=== PATIENT | male | born 1975 | race Caucasian/White ===

== ENCOUNTER 2023-04-01 01:34 | Inpatient (IN) | payer MEDICAID, SELFPAY ==
[2023-04-01 01:38] VITALS: BMI 28.1
[2023-04-01 01:40] VITALS: BP 156/90; PULSE 98; RESP 16; TEMP 37.1; O2SAT 95
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
[2023-04-01 02:02] LABS: Basophils % 0.5 %; Eosinophils # 0.2 10^3/uL (0.0-0.8); Eosinophils % 2.5 %; Hematocrit 44.7 % (42.0-52.0); Hemoglobin 14.8 g/dL (11.7-16.6); Lymphocytes # 2.9 10^3/uL (0.8-4.8); Lymphocytes % 33.8 %; Mean Corpuscular HGB Conc 33.1 g/dL (30.0-36.0); Mean Corpuscular Hemoglobin 30.8 pg (28.0-34.0); Mean Corpuscular Volume 92.9 fl (80-94); Mean Platelet Volume 9.2 fL (7.4-10.4); Monocytes # 0.6 10^3/uL (0.2-0.9); Monocytes % 6.6 %; Neutrophils # 4.78 10^3/uL (1.8-7.7); Neutrophils % 56.4 %; Nucleated Red Blood Cells % 0 %; Platelet Count 298 10^3/cmm (130-400); Red Blood Count 4.81 10^6/uL (4.1-5.3); Red Cell Distribution Width 13.2 % (12.1-15.1); White Blood Count 8.5 10^3/uL (4.0-10.0)
--- NOTE | 2023-04-01 02:08 | ECG_ITS ---
[facility] Test Date: 2023-04-01 Pat Name: Cherri Willis Department: Room: Gender: Male [employer] Analyst: : 1975 Requested By: Acacia Murphy Order Number: [id number] Elva MD: Juan Daniel Costello M.D. Measurements Intervals [place] Rate: 83 P: 57 MD: 162 QRS: -25 QRSD: 123 T: 30 QT: 361 QTc: 426 Interpretive Statements SINUS RHYTHM BORDERLINE LEFT AXIS DEVIATION [QRS AXIS < -20] RIGHT BUNDLE BRANCH BLOCK [120+ ms QRS DURATION, UPRIGHT V1, 40+ ms S IN I/aVL/V4/V5/V6] No previous ECG available for comparison Electronically Signed On 04-01-2023 13:20:24 CDT by Juan Daniel Costello M.D. [email or web address]
--- NOTE | 2023-04-01 02:12 | PC.NURSE ---
Pt served with Copy of 96 Hour Holds rights by this RN and security. All questions answered.
[2023-04-01 02:22] LABS: Alanine Aminotransferase 85 U/L (0-41); Albumin Level 4.7 g/dL (3.5-5.2); Alkaline Phosphatase 109 U/L (40-130); Anion Gap 16.9 (5-19); Aspartate Amino Transferase 87 U/L (0-40); Blood Urea Nitrogen 6 mg/dL (6-20); Calcium 8.9 mg/dL (8.5-10.5); Carbon Dioxide 27 mmol/L (22-29); Chloride 102 mmol/L (98-107); Globulin 3.8 g/dL (1.3-4.6); Glomerular Filtration Rate 143.2 mL/min (90-130); Glucose 115 mg/dL (65-115); Osmolality Calculated 293 mOsm/kg (285-295); Potassium 3.9 mmol/L (3.5-5.1); Sodium 142 mmol/L (136-145); Total Bilirubin 0.4 mg/dL (0.15-1.2); Total Protein 8.5 g/dL (6.6-8.7)
[2023-04-01 02:26] LABS: Acetaminophen < 5.0 ug/mL (10-30); Salicylate < 0.3 mg/dL (3-10)
[2023-04-01 02:27] LABS: Alcohol Level 328 mg/dL (0-10)
[2023-04-01 02:35] VITALS: BP 128/78; PULSE 85; RESP 14
--- NOTE | 2023-04-01 02:43 | PC.NURSE ---
-@ patients request- called daughter Conrad [phone] to let her know that he was in the ER and that he was doing ok. Told her that he is stable and safe. He will will be able to contact her tomorrow.
[2023-04-01 06:02] LABS: Amphetamines Screen Urine Negative (Negative); Barbiturates Screen Urine Negative (Negative); Benzodiazepines Screen Urine Negative (Negative); Cocaine Screen Urine Negative (Negative); Opiate Screen Urine Negative (Negative); PCP Screen Urine Negative (Negative); THC Screen Urine Positive (Negative)
[2023-04-01 06:07] VITALS: BP 123/68; PULSE 82; RESP 14; O2SAT 98
[2023-04-01 06:59] LABS: Adenovirus Not Detected (NOT DETECT); Chlamydia Pneumoniae Not Detected (NOT DETECT); Coronavirus 229E,HKU1,NL63,OC4 Not Detected (NOT DETECT); Human Metapneumovirus Not Detected (NOT DETECT); Human Rhinovirus/Enterovirus Not Detected (NOT DETECT); Influenza A Not Detected (NOT DETECT); Influenza A H1 Not Detected (NOT DETECT); Influenza A H1-2009 Not Detected (NOT DETECT); Influenza A H3 Not Detected (NOT DETECT); Influenza B Not Detected (NOT DETECT); Mycoplasma Pneumoniae Not Detected (NOT DETECT); Parainfluenza Virus Type 1 Not Detected (NOT DETECT); Parainfluenza Virus Type 2 Not Detected (NOT DETECT); Parainfluenza Virus Type 3 Not Detected (NOT DETECT); Parainfluenza Virus Type 4 Not Detected (NOT DETECT); Respiratory Syncytial Virus A Not Detected (NOT DETECT); Respiratory Syncytial Virus B Not Detected (NOT DETECT); SARS-COV-2 Not Detected (NOT DETECT)
[2023-04-01] MEDS: thiamine 100 mg Tablet PO (08:53)
[2023-04-01] MEDS: folic acid 1 mg Tablet PO (08:53)
[2023-04-01] MEDS: nicotine 21 mg Patch 1 PATCH TRANSDERMA (08:53)
[2023-04-01] MEDS: multivitamin therapeutic Tablet 1 TAB PO (08:53)
[2023-04-01 14:00] VITALS: BP 156/82; PULSE 77; RESP 16; TEMP 36.6; O2SAT 98
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
[2023-04-01] MEDS: nicotine 2 mg Gum BUCCAL (15:54)
--- NOTE | 2023-04-01 15:54 | PC.NURSE ---
WHEN PT ARRIVED ON FLOORPT NO LONGER HAD NICOTINE PATCH. DUE TO NO BEING ABLE TO KNOW WHAT TIME IT CAME OFF THIS RN HAD PT WAIT THE ALLUDED 2 HOURS IN BETWEEN NICOTINE PRNS.
[2023-04-01] MEDS: acetaminophen 325 mg Tablet 650 MG PO (17:06)
[2023-04-01 21:21] VITALS: BP 156/82; PULSE 101; RESP 16; TEMP 36.5; O2SAT 97
[2023-04-02 06:00] VITALS: BP 142/83; PULSE 87; RESP 18; O2SAT 97
[2023-04-02] MEDS: ibuprofen 600 mg Tablet PO (08:25)
[2023-04-02] MEDS: folic acid 1 mg Tablet PO (08:25)
[2023-04-02] MEDS: multivitamin therapeutic Tablet 1 TAB PO (08:26)
[2023-04-02] MEDS: thiamine 100 mg Tablet PO (08:26)
[2023-04-02] MEDS: nicotine 2 mg Gum BUCCAL ×3 (09:36→18:32)
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
[2023-04-02 14:00] VITALS: BP 151/86; PULSE 67; RESP 16; TEMP 36.6; O2SAT 98
[2023-04-02] MEDS: acetaminophen 325 mg Tablet 650 MG PO ×2 (14:17→18:32)
[2023-04-02 21:46] VITALS: BP 150/84; PULSE 79; RESP 17; TEMP 36.7; O2SAT 97
[2023-04-03 06:00] VITALS: BP 146/95; PULSE 77; RESP 17; O2SAT 98
[2023-04-03] MEDS: thiamine 100 mg Tablet PO (09:08)
[2023-04-03] MEDS: folic acid 1 mg Tablet PO (09:08)
[2023-04-03] MEDS: multivitamin therapeutic Tablet 1 TAB PO (09:08)
[2023-04-03] MEDS: nicotine 2 mg Gum BUCCAL ×5 (10:08→20:43)
[2023-04-03] MEDS: propranolol 20 mg Tablet PO (12:56)
[2023-04-03 14:00] VITALS: BP 148/85; PULSE 64; RESP 16; TEMP 36.7; O2SAT 98
--- NOTE | 2023-04-03 20:30 | W.PM.NPUPNS ---
Subjective NPU Subjective: Patient presents today reporting that he is open to rehab and shelters as well as long as his girlfriend can go. He was set up for [facility] on Thursday. We started propranolol 20 mg prn for anxiety after a discussion of the risks, benefit and alternatives he understood and agreed to proceed like is documented in this note and he reported he was through his withdrawal. We discussed the possibility of discharge tomorrow morning. Mental Status Exam MSE Comments: This is a well-nourished, well-developed, white male, in hospital scrubs, with adequate grooming and eye contact. With a notable cyst, appearing as likely sebaceous cyst, or middle/left forehead. No abnormal movements. Cooperative with exam in mild distress. Speech was normal rate and volume. Mood described as good; affect congruent. Thought process, organized. Thought content: patient denied any suicidal or homicidal ideation, there were no delusions reported or noted, patient denied any auditory or visual hallucinations. Attention, concentration, and memory appeared intact, but none were formally tested. Alert and oriented times three. Insight and judgment are limited. Impulse control is fair. Vitals/I&O/Wt Last Vital Signs Temp 98.1 F 04/03/23 14:00 Pulse 64 04/03/23 14:00 Resp 16 04/03/23 14:00 BP 148/85 04/03/23 14:00 Pulse Ox 98 04/03/23 14:00 O2 Del Method Room Air 04/03/23 14:00 Data NPU 04/01/23 01:51 04/01/23 01:51 A&P Assessment and plan (1) Suicidal ideation: (2) Alcohol intoxication: (3) Major depressive disorder, recurrent, moderate: (4) Alcohol use disorder: Plan This is a 47-year-old, white male, with some genetic loading for mental health and addiction issues, who presents on a 96-hour hold after having a blood alcohol level of 358, leading to an argument with his girlfriend and ultimately an altercation with the police, who is open to treatment and possibly medication for depression. 1. Continue current medication. Start propranolol 20 mg po tid prn anxiety. 2. Encourage individual, group, and milieu therapy. 3. Continue q-15-minute checks for safety. 4. Recommend sober living treatment at the highest level of care to which the patient is willing to commit. Involuntary Hold Information 96 Hour Hold: 96 Hour Involuntary Admission: Yes 96 Hour Hold Ending Date: 04/07/23 96 Hour Hold Ending Time: 01:34 Attestations NPU Medical Necessity Statement*: Inpatient hospitalization is medically necessary and the clinically appropriate intervention, at this time. We will monitor medications and make changes as indicated. Likely length of stay is 1-3 days. Coding Level of Care Code Acute Code for [facility] Fwd Diagnoses Suicidal ideation R45.851 Alcohol intoxication F10.929 Major depressive disorder, recurrent, moderate F33.1 Alcohol use disorder F10.90
[2023-04-03 21:08] VITALS: BP 127/77; PULSE 67; RESP 17; TEMP 36.7; O2SAT 97
[2023-04-04 06:00] VITALS: BP 133/80; PULSE 69; RESP 17; TEMP 36.4; O2SAT 98
[2023-04-04] MEDS: thiamine 100 mg Tablet PO (09:25)
[2023-04-04] MEDS: multivitamin therapeutic Tablet 1 TAB PO (09:25)
[2023-04-04] MEDS: folic acid 1 mg Tablet PO (09:25)
[2023-04-04] MEDS: nicotine 2 mg Gum BUCCAL (10:04)
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
[2023-04-04 11:01] VITALS: BP 133/80; PULSE 69; RESP 17; TEMP 36.4; O2SAT 98
--- NOTE | 2023-04-04 12:02 | PC.NURSE ---
written discharge instruction discussed and left with patient. pt states understanding and compliance. pt belonging given to patient and pt signed all personal belonging are now in his possession. pt left via car tender to go to [facility] then to his home.
== END 2023-04-04 12:05 | disposition home or self-care (01) | DRG 897 ==
LOC: ER 02:24 → ER IP 04:54 → NP 13:04
PROVIDERS: Admitting Provider Psychiatry & Neurology Psychiatry; Emergency Provider Emergency Medicine; Visit Provider Psychiatry & Neurology Psychiatry
DX: F10.129 Alcohol abuse with intoxication, unspecified (principal); R45.851 Suicidal ideations; F33.1 Major depressive disorder, recurrent, moderate; F10.139 Alcohol abuse with withdrawal, unspecified; Y90.8 Blood alcohol level of 240 mg/100 ml or more; F17.220 Nicotine dependence, chewing tobacco, uncomplicated; B19.20 Unspecified viral hepatitis C without hepatic coma; E87.6 Hypokalemia; Z81.3 Family history of other psychoactive substance abuse and dependence; Z91.51 Personal history of suicidal behavior
CPT/HCPCS: 80053; 80306; 80307; 85025; 87635; 93005; 96372; 97165; 99238; 99285; J3411

== ENCOUNTER 2024-01-29 21:48 | Inpatient (IN) | payer MEDICAID, SELFPAY ==
[2024-01-29 21:49] VITALS: BP 122/64; PULSE 63; RESP 12; TEMP 36.6; O2SAT 96; BMI 27.4
--- NOTE | 2024-01-29 21:54 | PC.NURSE ---
Poison controlled contacted for pt taking 58tabs of 50mg Trazodone. Per poison control watch the pt's QT intervals on ekg. Monitor pt's Potassium and Magnesium. Pharmacist Tamara was who was spoken with.
--- NOTE | 2024-01-29 21:55 | XRR_ITS ---
PROCEDURE INFORMATION: Exam: XR Chest Exam date and time: 01/29/2024 10:08 PM Age: 48 years old Clinical indication: Other: Overdose TECHNIQUE: Imaging protocol: Radiologic exam of the chest. Views: 1 view. COMPARISON: No relevant prior studies available. FINDINGS: Lungs: Clear, symmetrically inflated lungs. Pleural spaces: No pleural effusion. No pneumothorax. Heart/Mediastinum: Cardiac silhouette is normal in size for technique. Bones/joints: Postsurgical change noted in the right shoulder. XR/XR chest 1V portable [id number] IMPRESSION: No acute cardiopulmonary abnormality.
--- NOTE | 2024-01-29 21:56 | ECG_ITS ---
[facility] Test Date: 2024-01-29 Pat Name: Cherri Willis Department: Room: Gender: Male Manager Paid: : 1975 Requested By: Mik Santos Order Number: [id number] Stevenson MD: Juan Daniel Costello M.D. Measurements Intervals [place] Rate: 58 P: 85 [place]: 170 QRS: -29 QRSD: 133 T: 77 QT: 456 QTc: 452 Interpretive Statements SINUS BRADYCARDIA INDETERMINATE AXIS RIGHT BUNDLE BRANCH BLOCK [120+ ms QRS DURATION, UPRIGHT V1, 40+ ms S IN I/aVL/V4/V5/V6] Compared to ECG 04/01/2023 02:08:02 Indeterminate axis now present Sinus rhythm no longer present Electronically Signed On 01-29-2024 23:10:36 CDT by Juan Daniel Costello M.D. [id number]
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
[2024-01-29 22:04] LABS: Basophils # 0.1 10^3/uL (0.0-0.1); Basophils % 0.8 %; Eosinophils # 0.1 10^3/uL (0.0-0.8); Eosinophils % 1.3 %; Lymphocytes # 2.8 10^3/uL (0.8-4.8); Lymphocytes % 34.6 %; Mean Corpuscular HGB Conc 32.7 g/dL (30-55); Mean Corpuscular Volume 94.8 fl (82-101); Mean Platelet Volume 10.1 fL (7.4-10.4); Monocytes # 0.6 10^3/uL (0.2-0.9); Monocytes % 7.4 %; Neutrophils # 4.44 10^3/uL (1.8-7.7); Neutrophils % 55.4 %; Nucleated Red Blood Cells % 0 %; Platelet Count 234 10^3/cmm (157-399); Red Blood Count 4.64 10^6/uL (3.85-5.65); Red Cell Distribution Width 12.7 % (12.1-15.1)
[2024-01-29 22:09] VITALS: BP 122/64; PULSE 62; RESP 12; O2SAT 97
[2024-01-29] MEDS: sodium chloride 0.9% 1,000 ML 999 ML IV (22:09)
[2024-01-29 22:16] LABS: Acetaminophen < 5.0 ug/mL (10-30); Alanine Aminotransferase 74 U/L (0-41); Albumin Level 4.1 g/dL (3.5-5.2); Alcohol Level 200 mg/dL (0-10); Alkaline Phosphatase 107 U/L (40-130); Anion Gap 15.9 (5-19); Aspartate Amino Transferase 50 U/L (0-40); Blood Urea Nitrogen 11 mg/dL (6-20); Calcium 8.4 mg/dL (8.5-10.5); Carbon Dioxide 23 mmol/L (22-29); Chloride 106 mmol/L (98-107); Creatinine Clr Calc Pharmacy 123.4364; Globulin 2.9 g/dL (1.3-4.6); Glomerular Filtration Rate 119.4 mL/min (90-130); Glucose 115 mg/dL (65-115); Osmolality Calculated 292 mOsm/kg (285-295); Potassium 3.9 mmol/L (3.5-5.1); Salicylate < 0.3 mg/dL (3-10); Sodium 141 mmol/L (136-145); Total Bilirubin 0.2 mg/dL (0.15-1.2)
[2024-01-29 22:17] LABS: Troponin(5th) Baseline 12 ng/L (0-15)
[2024-01-29 22:38] LABS: ABG PCO2 46.7 mmHg (35-45); ABG PH Result 7.32 (7.35-7.45); Arterial Blood Gas Hematocrit 42.3 % (42-52); Base Excess ABG -2.1 mmol/L (-2.0-2.0); Blood Gas Allen Test Pos; Blood Gas Sample Site Radial, left; Blood Gas Sample Type Arterial; Carboxyhemoglobin 0.7 %THgb (0.4-20.1); HCO3 ABG 24.3 mmol/L (22-26); HGB O2 Sat 95.2 % (95-100); Ionized Calcium Level - ABG 1.2 mmol/L (1.1-1.4); Oxygen Device ROOM AIR; Oxygen Saturation ABG 96.9; PO2 ABG 92.3 mmHg (80.0-100.0); Potassium Level - ABG 3.8 mmol/L (3.5-5.0); Total Hemoglobin 13.8 g/dL (14-18)
[2024-01-29 23:01] LABS: Magnesium 2.3 mg/dL (1.7-2.3)
[2024-01-29 23:18] VITALS: PULSE 74; RESP 12; O2SAT 94
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
--- NOTE | 2024-01-29 23:56 | ECG_ITS ---
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 Measurements Intervals [place] Rate: 72 P: 84 NE: 164 QRS: -64 QRSD: 127 T: 80 QT: 430 QTc: 473 Interpretive Statements SINUS RHYTHM RIGHT BUNDLE BRANCH BLOCK [120+ ms QRS DURATION, UPRIGHT V1, 40+ ms S IN I/aVL/V4/V5/V6] LEFT ANTERIOR FASCICULAR BLOCK [QRS AXIS <= -45, QR IN I, RS IN II] Compared to ECG 01/29/2024 22:18:25 Left anterior fascicular block now present Sinus bradycardia no longer present Indeterminate axis no longer present Electronically Signed On 01-30-2024 13:45:50 CDT by Magan Kathleen M.D. [id number]
[2024-01-30] VITALS (19 sets, daily range): BP systolic 98–143; BP diastolic 48–79; PULSE 72–107; RESP 11–22; TEMP 36.6; O2SAT 90–98; BMI 26.8
[2024-01-30 00:07] LABS: Troponin 5 1HR 13.09 ng/L (0-15)
[2024-01-30 00:11] LABS: Troponin 5 1HR Delta 1.09 ABS# (0-10)
--- NOTE | 2024-01-30 01:28 | PC.NURSE ---
Admission Assessment completed as much as possible. Pt swatted at this nurse when attempts were made to listen to heart/lungs/GI sounds. Pt refused to answer many admission questions by stating, Man, can you just fucking leave me alone?? Damn, let me sleep! Pt reluctantly answered suicide assessment questions after this nurse stated they would be the last questions. Pt answered as documented. Dr. Wells called and notified of answers. Priscilla stated he would begin 96 hold paperwork.
[2024-01-30] MEDS: dextrose 5%-sod chloride 0.45% 1,000 ML 125 ML IV ×2 (01:41→09:30)
--- NOTE | 2024-01-30 02:45 | PC.NURSE ---
96 Hour Involuntary Hold Patient Rights have been read to the patient and a copy of the same has been given to him. Patient acknowledges understanding of the same. Table Games Supervisor Kia Knight was present at bedside at the time of presentation of Rights.
--- NOTE | 2024-01-30 02:58 | PC.NURSE ---
Pt read rights for 96 hour hold. Pt changed into green paper scrubs with security present. Belongings placed in bag, labeled with pt sticker, and moved to nurse's station. Belongings include: two pairs of pants, shirt, boots, coin/change money, TWO cell phones, dip/chew, glasses in soft case, and chap stick.
--- NOTE | 2024-01-30 03:56 | PC.NURSE ---
Pt refusing to allow phlebotomy to draw AM labs and [address] Wells notified and stated to document refusal and attempt again later.
[2024-01-30 05:58] LABS: Add Urine Microscopic? NO; Charge for UA Resulting for Rev
[2024-01-30 06:01] LABS: Bilirubin Urine Neg (Negative); Blood Urine Neg (Negative); Glucose Urine UA Norm (Normal); Ketones Urine Negative (Negative); Leukocyte Esterase Urine Negative (Negative); Nitrate Urine Negative (Negative); Protein Urine Neg (Negative); Urine Appearance Clear (CLEAR); Urine Color Yellow (Yellow); Urobilinogen Urine Neg (Negative); pH Urine 5 (5-7)
[2024-01-30 06:09] LABS: Amphetamines Screen Urine Negative (Negative); Barbiturates Screen Urine Negative (Negative); Benzodiazepines Screen Urine Negative (Negative); Cocaine Screen Urine Negative (Negative); Opiate Screen Urine Negative (Negative); PCP Screen Urine Negative (Negative); THC Screen Urine Negative (Negative)
--- NOTE | 2024-01-30 07:46 | ECG_ITS ---
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 Measurements Intervals [place] Rate: 81 P: 79 HI: 159 QRS: -33 QRSD: 129 T: 62 QT: 297 QTc: 347 Interpretive Statements SINUS RHYTHM LEFT AXIS DEVIATION [QRS AXIS < -30] RIGHT BUNDLE BRANCH BLOCK [120+ ms QRS DURATION, UPRIGHT V1, 40+ ms S IN I/aVL/V4/V5/V6] Compared to ECG 01/30/2024 00:36:34 Left-axis deviation now present Left anterior fascicular block no longer present Electronically Signed On 01-30-2024 13:46:09 CDT by Magan Kathleen M.D. [id number]
--- NOTE | 2024-01-30 08:32 | PC.PHAR ---
pt states he is in a sober living house-pt states he takes care of his own medications-pt states he has hydroxyzine hcl for prn use but states not taken for a long time-pt states doesnt take any otc medications pt states only takes the medications entered
--- NOTE | 2024-01-30 09:07 | ECG_ITS ---
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 Measurements Intervals [place] Rate: 82 P: 80 ID: 140 QRS: -34 QRSD: 122 T: 63 QT: 290 QTc: 340 Interpretive Statements SINUS RHYTHM LEFT AXIS DEVIATION [QRS AXIS < -30] RIGHT BUNDLE BRANCH BLOCK [120+ ms QRS DURATION, UPRIGHT V1, 40+ ms S IN I/aVL/V4/V5/V6] Compared to ECG 01/30/2024 07:46:56 No significant changes Electronically Signed On 01-30-2024 13:46:13 CDT by Magan Kathleen M.D. [id number]
[2024-01-30] MEDS: multivitamin therapeutic Tablet 1 TAB PO (10:03)
[2024-01-30] MEDS: folic acid 1 mg Tablet PO (10:03)
[2024-01-30] MEDS: thiamine 100 mg Tablet PO (10:03)
--- NOTE | 2024-01-30 10:04 | PC.NURSE ---
Patient keeps stating he will take his medications later. Nurse waited until 10 AM and patient still stating he will take them later. Nurse asked patient if he was refusing to take medication. Patient stated no and took the medication.
--- NOTE | 2024-01-30 11:32 | ECG_ITS ---
[facility] Test Date: 2024-01-30 Pat Name: Cherri Willis Department: Room: ICU02 Gender: Male Manager Database: : 1975 Requested By: Lisa Bernard Order Number: [id number] Elva MD: Magan Kathleen M.D. Measurements Intervals [place] Rate: 75 P: 73 AL: 155 QRS: -39 QRSD: 123 T: 55 QT: 295 QTc: 330 Interpretive Statements SINUS RHYTHM LEFT AXIS DEVIATION [QRS AXIS < -30] RIGHT BUNDLE BRANCH BLOCK [120+ ms QRS DURATION, UPRIGHT V1, 40+ ms S IN I/aVL/V4/V5/V6] SEPTAL MYOCARDIAL INFARCTION , PROBABLY OLD [40+ ms Q WAVE IN V1/V2] Compared to ECG 01/30/2024 09:07:34 Myocardial infarct finding now present Electronically Signed On 01-30-2024 13:47:31 CDT by Magan Kathleen M.D. [id number]
--- NOTE | 2024-01-30 13:39 | PC.NURSE ---
Poison controlVicki, called for update. Update given. Case closed per poison control.
--- NOTE | 2024-01-30 14:26 | ECG_ITS ---
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 Measurements Intervals [place] Rate: 78 P: 75 [place]: 156 QRS: -48 QRSD: 126 T: 49 QT: 445 QTc: 510 Interpretive Statements SINUS RHYTHM RIGHT BUNDLE BRANCH BLOCK [120+ ms QRS DURATION, UPRIGHT V1, 40+ ms S IN I/aVL/V4/V5/V6] LEFT ANTERIOR FASCICULAR BLOCK [QRS AXIS <= -45, QR IN I, RS IN II] Compared to ECG 01/30/2024 11:32:04 Left anterior fascicular block now present Left-axis deviation no longer present Myocardial infarct finding no longer present Electronically Signed On 01-31-2024 20:54:57 CDT by Magan Kathleen M.D. [id number]
[2024-01-30 16:40] LABS: Basophils % 0.4 %; Eosinophils # 0.1 10^3/uL (0.0-0.8); Eosinophils % 1.2 %; Hematocrit 42.4 % (37-53); Lymphocytes # 1.8 10^3/uL (0.8-4.8); Lymphocytes % 22.9 %; Mean Corpuscular HGB Conc 32.1 g/dL (30-55); Mean Corpuscular Hemoglobin 31.3 pg (27-33); Mean Corpuscular Volume 97.5 fl (82-101); Monocytes # 0.6 10^3/uL (0.2-0.9); Monocytes % 7.8 %; Neutrophils % 67.4 %; Nucleated Red Blood Cells % 0 %; Platelet Count 220 10^3/cmm (157-399); Red Blood Count 4.35 10^6/uL (3.85-5.65); Red Cell Distribution Width 12.8 % (12.1-15.1)
[2024-01-30 17:04] LABS: Troponin 5 6HR 9.48 ng/L (0-15)
--- NOTE | 2024-01-30 17:08 | P.PN_ITS ---
Subjective 2 Subjective: No acute overnight events noted. He is being drowsy but opens eyes and is comprehensive on verbal commands. He has been cleared by poison control for trazodone overdose no further intervention for overdose needed. Refused labs this morning. Medications: Reviewed: Yes Vitals/I&O/Wt Last Vital Signs Temp 97.9 F 01/30/24 01:00 Pulse 76 01/30/24 16:00 Resp 13 01/30/24 16:00 BP 142/70 01/30/24 16:00 Pulse Ox 95 01/30/24 16:00 O2 Del Method Room Air 01/30/24 16:00 01/30/24 01/30/24 01/30/24 06:59 14:59 22:59 Intake Total 1000 / 1000 977.083 / 977.083 Output Total 1800 / 1800 Balance 1000 / 1000 -822.917 / -822.917 Weight last 48 hrs Weight 75.296 kg Weight 75.296 kg Weight 77.111 kg Physical Exam 2 Narrative: General: Patient is sleepy but awakens. Oriented. Head: Normocephalic. Atraumatic. EOM intact. Neck: No JVD. Cardiovascular: RRR. No gallops. No murmurs. Lungs: Clear to auscultation, no use of accessory muscles, no crackles or wheezes. Skin: No jaundice. No rashes. Abdomen: Normal bowel sounds, abdomen soft and nontender. Genito Urinary: Genital exam not performed since complaints not related. Rectal: Rectal exam not performed since no symptoms indicated blood loss. Extremities: No cyanosis or clubbing. Musculoskeletal: 5/5 strength, normal range of motion, no swollen or erythematous joints. Neurological: Moves all 4 extremities. No myoclonus. Data 01/30/24 16:34 01/29/24 21:53 A&P Assessment and plan (1) Drug overdose: Intentional drug overdose with trazodone 50 mg times suspected 60 pills Continuous telemetry monitoring Serial EKGs done for QTc prolongation, QTc trending down Monitoring of electrolytes closely Aggressive IV fluids Seizure precautions Symptomatic and supportive care Psychiatry consultation done and Dr. Mccracken accepted the patient to psych rubio. Qualifiers: Encounter type: initial encounter Injury intent: undetermined intent Qualified Code(s): T50.904A - Poisoning by unspecified drugs, medicaments and biological substances, undetermined, initial encounter (2) Alcohol use disorder: Alcohol use disorder with abuse, currently intoxicated Start thiamine, folic acid, vitamin CIWA protocol (3) Major depressive disorder, recurrent, moderate: Hold home medications due to risk of QTc prolongation (4) Generalized anxiety disorder: Hold home medications due to risk of QTc prolongation (5) Methamphetamine use disorder, severe: Would benefit from cessation (6) Transaminitis: Likely secondary to alcohol abuse and hepatitis C Continue to monitor Plan DVT prophylaxis: Low risk CODE STATUS: Assume full code Attestations 2 Medical Necessity Statement*: He is hemodynamically and medically stable, ready to be transferred to psychiatry Time Spent in Patient Care: 15 minutes Coding Level of Care Code Acute Code for [facility] Fwd Diagnoses Drug overdose T50.904A Encounter type: initial encounter Injury intent: undetermined intent Alcohol use disorder F10.90 Major depressive disorder, recurrent, moderate F33.1 Generalized anxiety disorder F41.1 Methamphetamine use disorder, severe F15.20 Transaminitis R74.01 Time Spent (min) 15
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
[2024-01-30 17:14] LABS: Alanine Aminotransferase 63 U/L (0-41); Albumin Level 3.6 g/dL (3.5-5.2); Alkaline Phosphatase 103 U/L (40-130); Anion Gap 12.8 (5-19); Aspartate Amino Transferase 40 U/L (0-40); Blood Urea Nitrogen 9 mg/dL (6-20); Calcium 8.7 mg/dL (8.5-10.5); Carbon Dioxide 24 mmol/L (22-29); Chloride 107 mmol/L (98-107); Creatinine Clr Calc Pharmacy 106.8725; Globulin 3.2 g/dL (1.3-4.6); Glomerular Filtration Rate 102.3 mL/min (90-130); Glucose 120 mg/dL (65-115); Magnesium 1.9 mg/dL (1.7-2.3); Osmolality Calculated 290 mOsm/kg (285-295); Potassium 3.8 mmol/L (3.5-5.1); Sodium 140 mmol/L (136-145); Total Bilirubin 0.4 mg/dL (0.15-1.2); Total Protein 6.8 g/dL (6.6-8.7)
--- NOTE | 2024-01-30 17:30 | ECG_ITS ---
[facility] Test Date: 2024-01-30 Pat Name: Cherri Willis Department: Room: ICU02 Gender: Male Clinical Studies Specialist: : [id number] Requested By: Lisa Bernard Order Number: [id number] Elva MD: Magan Kathleen M.D. Measurements Intervals Halma Rate: 75 P: 64 MT: 163 QRS: -48 QRSD: 127 T: 47 QT: 430 QTc: 483 Interpretive Statements SINUS RHYTHM RIGHT BUNDLE BRANCH BLOCK [120+ ms QRS DURATION, UPRIGHT V1, 40+ ms S IN I/aVL/V4/V5/V6] LEFT ANTERIOR FASCICULAR BLOCK [QRS AXIS <= -45, QR IN I, RS IN II] Compared to ECG 01/30/2024 14:26:37 No significant changes Electronically Signed On 01-31-2024 20:55:34 CDT by Magan Kathleen M.D. [email or web address]
[2024-01-30 17:38] LABS: Phosphorus 3.6 mg/dL (2.5-4.5)
--- NOTE | 2024-01-30 17:38 | PC.NURSE ---
Report called to EVER Broderick. No further questions. Patient and belongings taken to psych by this nurse and security.
[2024-01-30 18:16] LABS: Troponin 5 6HR Delta -2.52 ng/L (0-12)
--- NOTE | 2024-01-30 18:56 | PC.NURSE ---
PT TRANSFER FROM THE ICU AFTER AN INTENTIONAL OVERDOSE OF TRAZODONE WITH AN ESTIMATE OF 15-58 PILLS. PT WAS CLEARED BY POISON CONTROL. UPON ADMIT TO THE NPU PT SEEMS FATIGUED HOWEVER PT IS COOPERATIVE WITH ASSESSMENT AND QUESTIONS. PT CURRENTLY DENIES SI/HI/AH/VH.
[2024-01-31] VITALS (7 sets, daily range): BP systolic 106–128; BP diastolic 65–80; PULSE 63–75; RESP 16–18; TEMP 36.4–37.2; O2SAT 95–97; BMI 25.2
[2024-01-31] MEDS: multivitamin therapeutic Tablet 1 TAB PO (08:03)
[2024-01-31] MEDS: thiamine 100 mg Tablet PO (08:03)
[2024-01-31] MEDS: folic acid 1 mg Tablet PO (08:03)
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
[2024-01-31] MEDS: nicotine 2 mg Gum BUCCAL (17:46)
[2024-02-01 04:00] VITALS: BP 102/57; PULSE 66; RESP 17; TEMP 36.5; O2SAT 97
[2024-02-01 07:48] VITALS: BP 123/75; PULSE 66; RESP 16; TEMP 36.6; O2SAT 98
[2024-02-01] MEDS: duloxetine 30 mg Capsule PO (07:58)
[2024-02-01] MEDS: folic acid 1 mg Tablet PO (07:59)
[2024-02-01] MEDS: multivitamin therapeutic Tablet 1 TAB PO (07:59)
[2024-02-01] MEDS: thiamine 100 mg Tablet PO (07:59)
[2024-02-01] MEDS: nicotine 2 mg Gum BUCCAL ×3 (10:30→17:49)
--- NOTE | 2024-02-01 10:55 | PC.NURSE ---
room search preformed no contra band found. beds stripped and cleaned.
[2024-02-01 12:00] VITALS: BP 127/79; PULSE 72; RESP 16; TEMP 36.6; O2SAT 94
--- NOTE | 2024-02-01 14:25 | P.NPUPN_ITS ---
Subjective NPU 2 Subjective: 48-year-old male with a history of alcoh ol dependence and major depressive disorder admitted after an overdose on more than 20 pills of trazodone with suicidal intent. Patient had reported that he had struggled with methamphetamine use as well having relapsed a few weeks ago. Patient had reported a history of IV drug use and hepatitis C. He had reported no side effects from the Cymbalta started to target anxiety and depression. He reported no alcohol withdrawal symptoms today. He had reported struggles with maintaining sobriety from alcohol and was interested in considering naltrexone IM to manage cravings for alcohol that continued to exist. He had reported feeling better today. He was uncertain as to whether he would be allowed back in his previous residence. Patient was compliant and was able to attend groups. He had reported adequate sleep last night. Mental Status Exam 2 MSE Comments: This is a well-nourished, well-developed, white male, in hospital scrubs, with improved grooming and normal gait today. No abnormal involuntary motor movements appreciated. He was cooperative with exam in mild distress. Speech was normal in rate and volume but slurred. Mood described as depressed; affect was less restricted today. Thought process was linear and organized. Thought content: patient denied any homicidal ideation and reported no suicidal ideation today. There were no delusions reported or noted, patient denied any auditory or visual hallucinations. Attention, concentration, and memory appeared grossly intact, but none were formally tested. Alert and oriented times three. Insight and judgment are poor. Impulse control is poor. Vitals/I&O/Wt Last Vital Signs Temp 97.9 F 02/01/24 12:00 Pulse 72 02/01/24 12:00 Resp 16 02/01/24 12:00 BP 127/79 02/01/24 12:00 Pulse Ox 94 02/01/24 12:00 O2 Del Method Room Air 02/01/24 12:00 Weight last 48 hrs Weight 71.123 kg Weight 75.296 kg Data NPU 01/30/24 16:34 01/30/24 16:34 A&P Assessment and plan (1) MDD (major depressive disorder), recurrent severe, without psychosis: (2) Suicidal ideation: (3) Alcohol intoxication: (4) Alcohol use disorder: Plan This is a 48-year-old, white male, with some genetic loading for mental health and addiction issues, who presents on a 96-hour hold after having a blood alcohol level of 200, leading to an argument with his girlfriend leading to a suicide attempt via trazodone overdose. 1. Continue cymbalta 30mg daily to target depression and anxiety with titration to 60mg daily. Consider vivitrol for alcohol dependence. Naltrexone initiated 50mg today orally. 2. Encourage individual, group, and milieu therapy. 3. Continue q-15-minute checks for safety. 4. Recommend sober living treatment at the highest level of care to which the patient is willing to commit. 5. [facility] protocol 6. Will attempt to gather collateral information. Involuntary Hold Information 2 96 Hour Hold: 96 Hour Involuntary Admission: Yes 96 Hour Hold Ending Date: 02/05/24 96 Hour Hold Ending Time: 00:01 Attestations NPU 2 Medical Necessity Statement*: Inpatient hospitalization is medically necessary and the clinically appropriate intervention, at this time. We will monitor medications and make changes as indicated. His likely length of stay is 4-6 days. Coding Level of Care Code Acute Code for [facility] Diagnoses MDD (major depressive disorder), recurrent severe, without psychosis F33.2 Suicidal ideation R45.851 Alcohol intoxication F10.929 Alcohol use disorder F10.90
[2024-02-01 14:40] VITALS: BP 123/77; PULSE 70; RESP 16; TEMP 36.8; O2SAT 97
[2024-02-01] MEDS: naltrexone hcl 50 mg Tablet PO (15:27)
[2024-02-01 19:54] VITALS: BP 147/73; PULSE 75; RESP 18; TEMP 36.5; O2SAT 97
[2024-02-02 06:00] VITALS: BP 125/68; PULSE 74; RESP 16; TEMP 36.5; O2SAT 98
[2024-02-02] MEDS: duloxetine 60 mg Capsule PO (07:41)
[2024-02-02] MEDS: multivitamin therapeutic Tablet 1 TAB PO (07:42)
[2024-02-02] MEDS: naltrexone hcl 50 mg Tablet PO (07:42)
[2024-02-02] MEDS: folic acid 1 mg Tablet PO (07:42)
[2024-02-02] MEDS: thiamine 100 mg Tablet PO (07:42)
[2024-02-02] MEDS: nicotine 2 mg Gum BUCCAL ×2 (09:43→15:42)
[2024-02-02 14:00] VITALS: BP 122/75; PULSE 75; RESP 16; TEMP 36.8; O2SAT 98
[2024-02-02] MEDS: NON-FORMULARY MEDICATION 380 EACH IM (15:21)
--- NOTE | 2024-02-02 16:24 | P.NPUPN_ITS ---
Subjective NPU 2 Subjective: 48-year-old male with a history of alcoh ol dependence and major depressive disorder admitted after an overdose on more than 20 pills of trazodone with suicidal intent. The patient was given the Vivitrol IM today without any side effects. Patient reported no side effects from the Cymbalta. The patient had reported that he was feeling better. He had reported interest in treatment for methamphetamine abuse as well. Information was provided regarding digital therapeutic application for treatment of alcohol and methamphetamine dependence. Patient had reported no gastrointestinal complaints but reported that he had been diagnosed with hepatitis C several years ago without any treatment. He was able to engage on the milieu and therapy. He had reported that he felt that his depression was getting better. Mental Status Exam 2 MSE Comments: This is a well-nourished, well-developed, white male, in hospital scrubs, with improved grooming and normal gait today. No abnormal involuntary motor movements appreciated. He was cooperative with exam in mild distress. Speech was normal in rate, rhythm and volume . Mood described as better; affect was brighter today. Thought process was linear and organized. Thought content: patient denied any homicidal ideation and reported no suicidal ideation today. There were no delusions reported or noted, patient denied any auditory or visual hallucinations. Attention, concentration, and memory appeared grossly intact, but none were formally tested. Alert and oriented times three. Insight was improving and judgment is poor. Impulse control is improving. Vitals/I&O/Wt Last Vital Signs Temp 98.2 F 02/02/24 14:00 Pulse 75 02/02/24 14:00 Resp 16 02/02/24 14:00 BP 122/75 02/02/24 14:00 Pulse Ox 98 02/02/24 14:00 O2 Del Method Room Air 02/02/24 14:00 Data NPU 01/30/24 16:34 01/30/24 16:34 A&P Assessment and plan (1) MDD (major depressive disorder), recurrent severe, without psychosis: (2) Suicidal ideation: (3) Alcohol intoxication: (4) Alcohol use disorder: Plan This is a 48-year-old, white male, with some genetic loading for mental health and addiction issues, who presents on a 96-hour hold after having a blood alcohol level of 200, leading to an argument with his girlfriend leading to a suicide attempt via trazodone overdose. 1. Increased cymbalta to 60mg today. 2. Encourage individual, group, and milieu therapy. 3. Continue q-15-minute checks for safety. 4. Recommend sober living treatment at the highest level of care to which the patient is willing to commit. 5. Vivitrol given today 380mg IM, d/c oral naltrexone. 6. Will attempt to gather collateral information. 7. Hepatitis Panel ordered. Involuntary Hold Information 2 96 Hour Hold: 96 Hour Involuntary Admission: Yes 96 Hour Hold Ending Date: 02/05/24 96 Hour Hold Ending Time: 00:01 Attestations NPU 2 Medical Necessity Statement*: Inpatient hospitalization is medically necessary and the clinically appropriate intervention, at this time. We will monitor medications and make changes as indicated. His likely length of stay is 2-3 days. Coding Level of Care Code Acute Code for [facility] Fwd Diagnoses MDD (major depressive disorder), recurrent severe, without psychosis F33.2 Suicidal ideation R45.851 Alcohol intoxication F10.929 Alcohol use disorder F10.90
[2024-02-02 19:30] VITALS: BP 143/67; PULSE 80; RESP 18; TEMP 36.7; O2SAT 97
[2024-02-02 20:53] LABS: Hepatitis A Antibody IgM Non-Reactive (Nonreactive); Hepatitis B Core AB, Total Non-Reactive (Nonreactive); Hepatitis B Surface AB 25.3 (11.5-1000); Hepatitis B Surface Antigen Non-Reactive (Nonreactive); Hepatitis C Virus Antibody Reactive (Nonreactive)
[2024-02-03 06:00] VITALS: BP 163/72; PULSE 65; RESP 18; TEMP 36.8; O2SAT 96
[2024-02-03] MEDS: naltrexone hcl 50 mg Tablet PO (08:21)
[2024-02-03] MEDS: duloxetine 60 mg Capsule PO (08:21)
[2024-02-03] MEDS: thiamine 100 mg Tablet PO (08:21)
[2024-02-03] MEDS: nicotine 2 mg Gum BUCCAL ×2 (08:21→11:20)
[2024-02-03] MEDS: multivitamin therapeutic Tablet 1 TAB PO (08:21)
[2024-02-03] MEDS: folic acid 1 mg Tablet PO (08:21)
--- NOTE | 2024-02-03 11:02 | W.PM.NPUDCS ---
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 05:50 Urine Protein Neg (Negative) 01/29/24 05:50 Urine Glucose (UA) Norm (Normal) 01/29/24 05:50 Urine Ketones Negative (Negati ve) 01/29/24 05:50 Urine Blood Neg (Negative) 01/29/24 05:50 Urine Nitrate Negative (Negati ve) 01/29/24 05:50 Urine Bilirubin Neg (Negative) 01/29/24 05:50 Urine Urobilinogen Neg mg/dL (Negati ve) 01/29/24 05:50 Ur Leukocyte Irma ase Negative (Negati ve) 01/29/24 05:50 Salicylates < 0.3 mg/dL (3-10 ) L 01/29/24 21:53 Urine Opiates Scre en Negative ng/mL (N egative) 01/29/24 05:50 Acetaminophen < 5.0 ug/mL (10-3 0) L 01/29/24 21:53 Ur Barbiturates Sc reen Negative ng/mL (N egative) 01/29/24 05:50 Ur Phencyclidine S crn Negative ng/mL (N egative) 01/29/24 05:50 Ur Amphetamines Sc reen Negative ng/mL (N egative) 01/29/24 05:50 U Benzodiazepines Scrn Negative ng/mL (N egative) 01/29/24 05:50 Urine Cocaine Scre en Negative ng/mL (N egative) 01/29/24 05:50 U Marijuana (THC) Screen Negative ng/mL (N egative) 01/29/24 05:50 Ethyl Alcohol 200 mg/dL (0-10) H 01/29/24 21:53 Hepatitis A IgM Ab Non-reactive (No nreactive) 02/02/24 17:35 Hep Bs Antigen Non-reactive (No nreactive) 02/02/24 17:35 Hep Bs Antibody 25.3 (11.5-1000) 02/02/24 17:35 Hep B Core Total A b Non-reactive (No nreactive) 02/02/24 17:35 Hepatitis C Antibo dy Reactive (Nonrea ctive) H 02/02/24 17:35 Vitals: Last Vital Signs Temp 98.2 F 02/03/24 06:00 Pulse 65 02/03/24 06:00 Resp 18 02/03/24 06:00 BP 163/72 02/03/24 06:00 Pulse Ox 96 02/03/24 06:00 O2 Del Method Room Air 02/03/24 06:00 Discharge Plan Discharge Patient Disposition: Home Condition: Stable Prescriptions: New folic acid 1 mg Tablet 1 mg PO DAILY 10 Days Qty: 10 0RF Vitamin B-1 (mononitrate) 100 mg Tablet 100 mg PO DAILY 10 Days Qty: 10 0RF Thera 400 mcg Tablet 1 tab PO DAILY 10 Days Qty: 10 0RF duloxetine 60 mg Capsule,Delayed Release(Dr/Ec) 60 mg PO DAILY 30 Days Qty: 30 1RF Vivitrol 380 mg suspension,extended rel recon 380 mg IM ONCE 28 Days Qty: 1 1RF Rx Instructions: Patient next dose due on March 01, 2024 to be given by nurse or physician IM. Discontinued hydroxyzine HCl 50 mg tablet 50 mg PO QID PRN (Reason: anxiety) Qty: 120 1RF fluoxetine [Prozac] 40 mg capsule 40 mg PO BID Qty: 60 2RF trazodone 50 mg tablet 100 mg PO BEDTIME PRN (Reason: Sleep) Discharge Orders: Discharge Order (Routine); Ordered 02/03/24 Ordered By: Carson Mccracken Referrals: [facility] [Other] (You have been referred. ) Ty Aviles MD [Physician] - 02/04/24 3:15 pm (Follow up.) Discharge Diet: Usual diet Discharge Activity: Increase activity as tolerated Patient Instructions: Alcoholism, Duloxetine (By mouth) (Renetta Paul Drizalma Sprinkle), Naltrexone (By injection) (Vivitrol), Depression (DC), Anxiety (DC), Opioid Safety Discharge Attestations NPU Time Spent in Discharge Care*: less than 30 min Specific Discharge Activities: Specific discharge activities: educating patient and discussing with manager of case/social workers/dc planners Coding Level of Care Code Acute Code for g Fwd Diagnoses MDD (major depressive disorder), recurrent severe, without psychosis F33.2 Suicidal ideation R45.851 Alcohol intoxication F10.929 Alcohol use disorder F10.90
[2024-02-03 11:06] VITALS: BP 163/72; PULSE 65; RESP 18; TEMP 36.8; O2SAT 96
[2024-02-04 14:05] LABS: HEP C RNA Viral Load Quant 10500000 IU/mL (NOT DETECTED); HEP C RNA Viral Load Quant 7.02 Log IU/mL (NOT DETECTED)
== END 2024-02-03 11:56 | DRG 918 ==
LOC: ER 23:37 → ICU 01-30 00:03 → NP 01-30 18:01
PROVIDERS: Admitting Provider Internal Medicine; Emergency Provider Emergency Medicine; Visit Provider Psychiatry & Neurology Psychiatry
DX: T43.212A Poisoning by selective serotonin and norepinephrine reuptake inhibitors, intentional self-harm, initial encounter (principal); F33.1 Major depressive disorder, recurrent, moderate; Y99.9 Unspecified external cause status; F10.129 Alcohol abuse with intoxication, unspecified; F15.90 Other stimulant use, unspecified, uncomplicated; Y90.7 Blood alcohol level of 200-239 mg/100 ml; F41.1 Generalized anxiety disorder; R74.01 Elevation of levels of liver transaminase levels; B19.20 Unspecified viral hepatitis C without hepatic coma
CPT/HCPCS: 36415; 36600; 71045; 80051; 80053; 80306; 80307; 81003; 82330; 82805; 83735; 84100; 84484; 85025; 86705; 86706; 86709; 86803; 87340; 87522; 93005; 96372; 97150; 97165; 99285; G0378; J7030; J7799; J9999

== ENCOUNTER 2025-05-02 20:24 | Emergency (ER) | payer MEDICAID, SELFPAY ==
[2025-05-02 20:27] VITALS: BP 175/107; PULSE 100; RESP 20; TEMP 36.8; O2SAT 98; BMI 30.7
--- OUTSIDE RECORDS SUMMARY | 2025-05-02 20:30 | XMS_ITS | Encounter Summary ---
Author Organization [employer] [facility] Address [address] [place] [address] Care Team Providers Care Solar Photovoltaic Systems Engineer Name Role Phone Unavailable Primary Care Provider Unavailabl e Encounter Details Date Type Department Care Team (Late st Contact Info) Description 12/18/2014 Lab Requisition [facility] [place] [address] [place] [address] Ty Alexander NP [address] [place] [address] Sick Social History Tobacco Use Types Packs/Day Years Used Date Smoking Tobacco: Never Assessed Sex and Gender Information Value Date Recorded Sex Assigned at Not on file Legal Sex Male 4:01 AM 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 Gender Identity Not on file Sexual Orientation Not on file documented as of this encounter Plan of Treatment Not on file documented as of this encounter Procedures Procedure Name Priority Date/Time Associated Diagnosis Comments TSH Routine 12/18/2014 9:34 PM 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 Sick [ICD-9-CM] MAGNESIUM LEVEL Routine 12/18/2014 9:34 PM 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 Sick [ICD-9-CM] COMPREHENSIVE METABOLIC PANEL Routine 12/18/2014 9:34 PM 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 Sick [ICD-9-CM] documented in this encounter Results * TSH (12/18/2014 9:34 PM 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) TSH 2.10 0.30 - 4.80 uIU/mL 12/18/2014 10:17 PM 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 [facility] [place] Blood Collection / Unknown 12/18/2014 9:34 PM 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 12/18/2014 9:34 PM 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 Ty Alexander WEIGH TANK OPERATOR CHEMISTRY ORDERABLES Final Resu lt Performing Organization Address City/[facility]/ZIP Co de Phone Number [facility] CLIA # [id number] [address] [place] [address] * MAGNESIUM LEVEL (12/18/2014 9:34 PM 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) Pathologist [facility] MAGNESIUM 2.0 1.8 - 2.4 mg/dL 12/18/2014 10:17 PM [facility] Blood Collection / Unknown 12/18/2014 9:34 PM 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 12/18/2014 9:34 PM 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 Ty Alexander WEIGH TANK OPERATOR CHEMISTRY ORDERABLES Final Resu lt Performing Organization Address [facility] Co de Phone Number [facility] CLIA # [id number] [address] [place] [phone] * (ABNORMAL) COMPREHENSIVE METABOLIC PANEL (12/18/2014 9:34 PM 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) SODIUM 135(L) 136 - 145 mmol/L 12/18/2014 10:17 PM [facility] [place] POTASSIUM 3.8 3.5 - 5.1 mmol/L 12/18/2014 10:17 PM [facility] [employer] [facility] CHLORIDE 97(L) 98 - 107 mmol/L 12/18/2014 10:17 PM [facility] CO2 29 21 - 32 mmol/L 12/18/2014 10:17 PM [facility] [place] CALCIUM 9.3 8.5 - 10.1 mg/dL 12/18/2014 10:17 PM [facility] [place] BUN 10 7 - 18 mg/dL 12/18/2014 10:17 PM [facility] CREATININE 0.80 0.60 - 1.30 mg/dL 12/18/2014 10:17 PM [facility] [employer] [facility] GLUCOSE 86 74 - 106 mg/dL 12/18/2014 10:17 PM [facility] TOTAL PROTEIN 8.5(H) 6.4 - 8.2 g/dL 12/18/2014 10:17 PM 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 [facility] [employer] ALBUMIN 4.0 3.4 - 5.0 g/dL 12/18/2014 10:17 PM [facility] [employer] BILIRUBIN TOTAL 1.2(H) 0.2 - 1.0 mg/dL 12/18/2014 10:17 PM 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 [facility] ALKALINE PHOSPHATASE 116 46 - 116 U/L 12/18/2014 10:17 PM [facility] AST 209(H) 15 - 37 U/L 12/18/2014 10:17 PM [facility] ALT 349(H) 30 - 65 U/L 12/18/2014 10:17 PM 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 [facility] GFR >60 >=60 mL/min/1.7 3 sq meter 12/18/2014 10:17 PM [employer] Comment: eGFR has not been validated for use in the elderly (> 70 years of age), women, patients with serious co-morbid conditions, or persons with extremes of body size or muscle mass and should also be interpreted with caution in patients with acute kidney failure, dialysis dependent patients, patients reporting exceptional dietary intake (e.g. vegetarian diet, high protein diets, creatine supplementation), and patients with severe liver disease. Based on National Kidney Disease Education Program If patient is , please refer to the GFR result. GFR, >60 >=60 mL/min/1.7 3 sq meter 12/18/2014 10:17 PM [employer] ANION GAP 9(L) 12 - 20 mmol/L 12/18/2014 10:17 PM [employer] Blood Collection / Unknown 12/18/2014 9:34 PM 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 12/18/2014 9:34 PM [facility] [place] - 12/18/2014 10:17 PM 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 Effective 06/22/2014, the Alkaline Phosphatase test method and reference range have changed. Please take this into consideration when interpreting results prior to or after this date. Ty Alexander NP CHEMISTRY ORDERABLES Final Resu lt [facility] # [id number] [address] [place] [id number] documented in this encounter Visit Diagnoses Diagnosis Sick Other unknown and unspecified cause of morbidity or mortality documented in this encounter
--- OUTSIDE RECORDS SUMMARY | 2025-05-02 20:30 | XMS_ITS | Clinical Summary ---
Author Organization [facility] Address [address] [place] [address] Phone Care Team Providers Care Tool Maintenance Technician Name Role Phone Unavailable Primary Care Provider Unavailabl e Allergies Active Allergy Reactions Criticality Noted Date Comments Morphine Shortness of Breath/Wheezing High 011 Penicillins Hives High 04/05/2011 Medications oxyCODONE (ROXICODONE) 5 mg tablet Take 1 Tab (5 mg) by mouth every 8 hours as needed for Pain or Pain, Severe. 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 Gender Identity Not on file Sexual Orientation Not on file Last Filed Vital Signs Vital Sign Reading Time Taken Comments Blood Pressure 154/71 05/12/2015 7:16 PM CDT Pulse 128 04/05/2011 10:40 PM CDT Temperature 36.8 C (98.3 F) 05/12/2015 4:37 PM CDT Respiratory Rate 20 05/12/2015 7:16 PM CDT Oxygen Saturation 100% 05/12/2015 7:16 PM CDT Inhaled Oxygen Concentration - - Weight 69.4 kg (153 lb) 05/12/2015 4:37 PM CDT Height 167.6 cm (5' 6 ) 05/12/2015 4:37 PM CDT Body Mass Index 24.69 05/12/2015 4:37 PM CDT Plan of Treatment Health Maintenance Due Date Last Done Comments DTAP/TDAP/TD VACCINES (1 - Tdap) 1992 HEPATITIS B VACCINES (1 of 3 - 19+ 3-dose series) 11/20 COLORECTAL SCREENING 2018 Colorectal Cancer Screening 2018 FIT-DNA Q 3 years 2018 FIT/FOBT Q 1 year 2018 Flex Sig/CT Colonography Q 5 years 2018 ZOSTER VACCINE (1 of 2) 2023 INFLUENZA VACCINE (#1) 2025 Insurance MEDICAID [place]
--- OUTSIDE RECORDS SUMMARY | 2025-05-02 20:30 | XMS_ITS | Encounter Summary ---
Author Organization [facility] Address [address] Attn: [place] [address] Care Team Providers Care Crystal Calibrator Name Role Phone Unavailable Primary Care Provider Unavailabl e Encounter Details Date Type Department Care Team (Late st Contact Info) Description 04/07/2001 Outpatient Historical Wiegelva III, Chuy G, DO NO ADDRESS ON FILE Social History Tobacco Use Types Packs/Day Years Used Date Smoking Tobacco: Never Assessed Sex and Gender Information Value Date Recorded Sex Assigned at Not on file Legal Sex Male 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
--- OUTSIDE RECORDS SUMMARY | 2025-05-02 20:30 | XMS_ITS | Clinical Summary ---
Author Organization [employer] [facility] Address [address] Nath: Epic Prelude [place]T [place] [address] Care Team Providers Care Public Information Director Name Role Phone Unavailable Primary Care Provider Unavailabl e Allergies Active Allergy Reactions Criticality Noted Date Comments Morphine Shortness of Breath/Wheezing High 011 Penicillins Hives High 04/05/2011 Medications oxyCODONE (ROXICODONE) 5 mg tablet Take 1 Tab (5 mg) by mouth every 8 hours as needed for Pain or Pain, Severe. Max Daily Amount: 15 mg 25 Tablet 0 05/12/2015 Active Social History Tobacco Use Types Packs/Day Years Used Date Smoking Tobacco: Never Smokeless Tobacco: Current Alcohol Use Standard Drinks/Week Comments Yes 24 (1 standard drink = 0.6 oz pu re alcohol) Sex and Gender Information Value Date Recorded Sex Assigned at Not on file Legal Sex Male 2:37 AM SHIRT SEWER Gender Identity Not on file Sexual Orientation Not on file Last Filed Vital Signs Vital Sign Reading Time Taken Comments Blood Pressure 154/71 05/12/2015 7:16 PM CDT Pulse - - Temperature 36.8 C (98.3 F) 05/12/2015 4:37 PM CDT Respiratory Rate 20 05/12/2015 7:16 PM CDT Oxygen Saturation - - Inhaled Oxygen Concentration - - Weight 69.4 [...]
[2025-05-02 21:59] LABS: Hematocrit 44.0 % (37-53); Hemoglobin 14.90 g/dL (11.27-16.99); Mean Corpuscular HGB Conc 33.9 g/dL (30-55); Mean Corpuscular Hemoglobin 35.3 pg (27-33); Mean Corpuscular Volume 104.3 fl (82-101); Nucleated Red Blood Cells % 0 %; Platelet Count 169 10^3/cmm (157-399); Red Blood Count 4.22 10^6/uL (3.85-5.65); White Blood Count 6.48 10^3/uL (3.29-11.43)
[2025-05-02 22:20] LABS: Alanine Aminotransferase 112 U/L (0-41); Albumin Level 3.1 g/dL (3.5-5.2); Alkaline Phosphatase 239 U/L (40-130); Anion Gap 15.5 (5-19); Aspartate Amino Transferase 258 U/L (0-40); Blood Urea Nitrogen 5 mg/dL (6-20); Calcium 8.0 mg/dL (8.5-10.5); Carbon Dioxide 26 mmol/L (22-29); Chloride 100 mmol/L (98-107); Creatinine Clr Calc Pharmacy 179.8621; Globulin 4.5 g/dL (1.3-4.6); Glucose 194 mg/dL (65-115); Lipase 66 U/L (13-60); Osmolality Calculated 289 mOsm/kg (285-295); Potassium 3.5 mmol/L (3.5-5.1); Sodium 138 mmol/L (136-145); Total Protein 7.6 g/dL (6.6-8.7)
--- NOTE | 2025-05-02 22:56 | CTR_ITS ---
PROCEDURE INFORMATION: Exam: CT Abdomen And Pelvis With Contrast Exam date and time: 05/02/2025 11:27 PM Age: 49 years old Clinical indication: Abdominal pain; Other: Ruq; Additional info: Abd pain TECHNIQUE: Imaging protocol: Computed tomography of the abdomen and pelvis with contrast. Radiation optimization: All CT scans at this facility use at least one of these dose optimization techniques: automated exposure control; mA and/or kV adjustment per patient size (includes targeted exams where dose is matched to clinical indication); or iterative reconstruction. Contrast material: OMNI 350; Contrast volume: 100 ml; Contrast route: INTRAVENOUS (IV); COMPARISON: CR XR chest 1V portable [id number] 01/29/2024 10:08 PM RADIATION DOSE METRICS: Total DLP (mGy-cm): 836.5 FINDINGS: Liver: No discrete liver lesions are apparent. Smooth hepatic contour. Gallbladder and biliary ducts: Gallbladder appears inflamed, hyperemic and slightly thick walled with some trace fluid adjacent to the fundus. Pancreas: No evidence of pancreatitis. No ductal dilation. Spleen: Spleen is within normal limits. Adrenal glands: Adrenal glands are within expected limits. Kidneys and ureters: No renal or ureteral calculi are identified. No hydronephrosis. Stomach and bowel: Small bowel is normal caliber. No obstruction. Large bowel within normal limits. No inflammatory wall thickening or abnormal bowel dilatation. Appendix: No evidence of appendicitis. Intraperitoneal space: No free air. No significant fluid collection. Vasculature: No abdominal aortic aneurysm. Lymph nodes: No pathologically enlarged lymph nodes by CT size criteria. Urinary bladder: Unremarkable as visualized. Reproductive: Unremarkable as visualized. Bones/joints: No acute osseous abnormalities. Soft tissues: Unremarkable. CT/CT abdomen pelvis w con* [id number] IMPRESSION: Findings could be consistent with acute cholecystitis.
[2025-05-02] MEDS: iohexol 350 mg/mL 500 mL Btl (per mL) IV (23:32)
[2025-05-03] VITALS (16 sets, daily range): BP systolic 123–171; BP diastolic 68–97; PULSE 62–89; RESP 14–18; O2SAT 93–98
[2025-05-03 00:54] LABS: Glucose Urine UA 2+ (Normal); Nitrate Urine Negative (Negative); Specific Gravity, Urine 1.025 (1.005-1.030)
--- NOTE | 2025-05-03 01:08 | USR_ITS ---
PROCEDURE INFORMATION: Exam: US Abdomen, Limited; Right Upper Quadrant Exam date and time: 05/03/2025 1:16 AM Age: 49 years old Clinical indication: Abdominal pain; Epigastric; Additional info: Inflammed gb TECHNIQUE: Imaging protocol: Real time ultrasound of the abdomen with image documentation. Limited exam focused on the right upper quadrant. COMPARISON: CT abdomen pelvis w con* [id number] 05/02/2025 11:27 PM FINDINGS: Liver: Liver measures 18.7 cm with no suspicious liver lesions. Hepatopetal flow in the portal vein. Gallbladder: The gallbladder is relatively unremarkable on this examination add the small pericholecystic fluid near the fundus was not able to be visualized. Race Starter indicates negative Cage's sign. No stones or sludge are seen. Biliary ducts: Common bile duct measures 3 mm. No stones. No dilation. Pancreas: Visualized pancreas is unremarkable. Right kidney: 10.6 cm in length. No mass. No hydronephrosis. US/US gall bladder [id number] IMPRESSION: Gallbladder is relatively unremarkable sonographically, however the CT findings are more specific and were highly suggestive of cholecystitis. If high clinical suspicion persists, HIDA scan would provide definitive characterization.
--- NOTE | 2025-05-03 01:14 | W.ED.ABDPA2 ---
Documented by User: Sujey Arroyo NP 05/03/25 18:37 HPI - Abdominal Pain General: Chief Complaint: Abdominal Pain Stated Complaint: weakness, white, foamy looking bowel movements Time Seen by Provider: 05/02/25 20:54 History of Present Illness: 49-year-old male patient presents to the emergency department with nausea vomiting abdominal pain and white frothy stool. Patient states the symptoms have been going on for the last 2 to 3 days. Patient denies any fever. Patient denies any chest pain or shortness of breath. Patient denies any other complaints Related Data Home Medications ?Medication ?Instructions ?Recorded ?Confirmed naproxen sodium 220 mg tablet 220 - 440 mg PO BID PRN Pain 05/03/25 05/03/25 (Aleve) omeprazole magnesium 20 mg 20 mg PO DAILY 05/03/25 05/03/25 tablet,delayed release (Prilosec OTC) Allergies Allergy/AdvReac Type Severity Reaction Status Date / Time buspirone (From BuSpar) Allergy ADR-Agitate Verified 02/04/24 15:19 d morphine Allergy Unknown Verified 02/04/24 15:19 Penicillins Allergy ALGY-Hives Verified 02/04/24 15:19 Review of Systems General: Reports: 10 or more systems reviewed and unremarkable except in HPI and below PFSH ED PFSH: Medical History (Updated 05/03/25 @ 04:46 by Saran Acevedo MD) Methamphetamine use disorder, severe Hepatitis C Generalized anxiety disorder Alcohol use disorder Major depressive disorder, recurrent, moderate Surgical History History of shoulder surgery Family History Denies family history of Suicide Social History Smoking and tobacco/nicotine status: never used tobacco/nicotine Alcohol intake: current Substance/Drug Use: current Physical Exam Const: COMMON NORMALS: no acute distress, average body habitus, patient oriented x3, no limitations, healthy appearing, alert and well nourished HENMT: COMMON NORMALS: normocephalic, atraumatic, hearing grossly normal bilaterally, external ears normal, Normal external nose present, moist oral mucous membranes and oropharynx normal HEAD & SCALP: normocephalic and atraumatic NOSE: Normal external nose present EXTERNAL EAR: Yes external ears normal Eye: COMMON NORMALS: Equal, round and reactive pupils present, EOMs intact bilaterally and conjunctivae normal CONJUNCTIVA: Yes conjunctivae normal PUPIL: Yes Equal, round and reactive pupils present Neck/C-Spine: COMMON NORMALS: full ROM, no lymphadenopathy, supple, no meningeal signs, no JVD and Thyroid normal THYROID: Thyroid normal Chest: COMMONS NORMALS: normal inspection of the chest and normal palpation of entire chest wall Resp: COMMON NORMALS: normal respiratory effort, No retractions, No use of accessory muscles and clear to auscultation bilaterally AUSCULTATION: clear to auscultation bilaterally Cardio: COMMON NORMALS: no JVD, regular rate, regular rhythm, S1 normal heart sound present, S2 normal heart sound present and No gallops present (Cardio) RATE: regular rate RHYTHM: regular rhythm HEART SOUNDS: S1 normal heart sound present and S2 normal heart sound present GI: COMMON NORMALS: Normal to inspection, nondistended, normoactive bowel sounds present, Soft to palpation, No hepatosplenomegaly present and no masses PALPATION: Yes Soft to palpation and Yes No hepatosplenomegaly present Neuro: COMMON NORMALS: patient oriented x3 SENSORIUM/ORIENTATION: Yes alert MENINGEAL SIGNS: Yes no meningeal signs Course Vital Signs: Vital signs: Vital Signs Temperature 98.3 F 05/02/25 20:27 Pulse Rate 88 05/03/25 17:08 Respiratory Rate 18 05/03/25 09:34 Blood Pressure 171/87 05/03/25 17:08 Pulse Oximetry 97 05/03/25 17:08 Oxygen Delivery Me thod Room Air 05/03/25 00:41 MDM - Abdominal Pain Medical Decision Making 49-year-old male patient presents to the emergency department with nausea vomiting abdominal pain and white frothy stool. Patient states the symptoms have been going on for the last 2 to 3 days. Patient denies any fever. Patient denies any chest pain or shortness of breath. Patient denies any other complaints. Pt has elevated bili, AST and ALT as well as ct findings c/w cholecystitis Spoke to Surgeon here and also Dr. Deleon at [facility] both indicated patient needs a higher level of care Lab Data 05/02/25 21:54 05/02/25 21:54 Labs/Radiology: Radiology Impressions Abdomen/Pelvis CT 05/02/25 22:56 IMPRESSION: Findings could be consistent with acute cholecystitis. Gallbladder Ultrasound 05/03/25 01:08 IMPRESSION: Gallbladder is relatively unremarkable sonographically, however the CT findings are more specific and were highly suggestive of cholecystitis. If high clinical suspicion persists, HIDA scan would provide definitive characterization. Laboratory Results WBC 6.48 10^3/uL (3.29-11.43) 05/02/25 21:54 RBC 4.22 10^6/uL (3.85-5.65) 05/02/25 21:54 Hgb 14.90 g/dL (11.27-16.99) 05/02/25 21:54 Hct 44.0 % (37-53) 05/02/25 21:54 MCV 104.3 fl (82-101) H 05/02/25 21:54 MCH 35.3 pg (27-33) H 05/02/25 21:54 MCHC 33.9 g/dL (30-55) 05/02/25 21:54 RDW 13.4 % (12.1-15.1) 05/02/25 21:54 Plt Count 169 10^3/cmm (157-399) 05/02/25 21:54 MPV 10.8 fL (7.4-10.4) H 05/02/25 21:54 Neut % (Auto) 65.4 % 05/02/25 21:54 Lymph % (Auto) 19.6 % 05/02/25 21:54 [place] % (Auto) 13.3 % 05/02/25 21:54 Eos % (Auto) 0.5 % 05/02/25 21:54 Baso % (Auto) 0.9 % 05/02/25 21:54 Neut # (Auto) 4.24 10^3/uL (1.8-7.7) 05/02/25 21:54 Lymph # (Auto) 1.3 10^3/uL (0.8-4.8) 05/02/25 21:54 [place] # (Auto) 0.9 10^3/uL (0.2-0.9) 05/02/25 21:54 Eos # (Auto) 0.0 10^3/uL (0.0-0.8) 05/02/25 21:54 Baso # (Auto) 0.1 10^3/uL (0.0-0.1) 05/02/25 21:54 Nucleated RBC % (auto) 0 % 05/02/25 21:54 Nucleated RBCs # 0.0 /100WBC 05/02/25 21:54 PT 15.00 SECONDS (12.1-14.9) H 05/02/25 21:54 INR 1.10 (0.8-1.2) 05/02/25 21:54 APTT 32.1 SECONDS (23.9-36.7) 05/02/25 21:54 Sodium 138 mmol/L (136-145) 05/02/25 21:54 Potassium 3.5 mmol/L (3.5-5.1) 05/02/25 21:54 Chloride 100 mmol/L (98-107) 05/02/25 21:54 Carbon Dioxide 26 mmol/L (22-29) 05/02/25 21:54 Anion Gap 15.5 (5-19) 05/02/25 21:54 BUN 5 mg/dL (6-20) L 05/02/25 21:54 Creatinine 0.5 mg/dL (0.7-1.2) L 05/02/25 21:54 GFR Calculation 175.3 mL/min (90-130) H 05/02/25 21:54 Glucose 194 mg/dL (65-115) H 05/02/25 21:54 Calculated Osmolality 289 mOsm/kg (285-295) 05/02/25 21:54 Calcium 8.0 mg/dL (8.5-10.5) L 05/02/25 21:54 Total Bilirubin 2.7 mg/dL (0.15-1.2) H 05/02/25 21:54 AST 258 U/L (0-40) H 05/02/25 21:54 ALT 112 U/L (0-41) H 05/02/25 21:54 Alkaline Phosphatase 239 U/L (40-130) H 05/02/25 21:54 Creatine Kinase 149 U/L (39-308) 05/02/25 21:54 Total Protein 7.6 g/dL (6.6-8.7) 05/02/25 21:54 Albumin 3.1 g/dL (3.5-5.2) L 05/02/25 21:54 Globulin 4.5 g/dL (1.3-4.6) 05/02/25 21:54 Lipase 66 U/L (13-60) H 05/02/25 21:54 Urine Color Dark yellow (Yellow) A 05/03/25 00:08 Urine Appearance Clear (CLEAR) 05/03/25 00:08 Urine pH 6.0 (5-7) 05/03/25 00:08 Ur Specific [place] 1.025 (1.005-1.030) 05/03/25 00:08 Urine Protein 1+ (Negative) A 05/03/25 00:08 Urine Glucose (UA) 2+ (Normal) H 05/03/25 00:08 Urine Ketones Trace (Negative) 05/03/25 00:08 Urine Blood Negative (Negative) 05/03/25 00:08 Urine Nitrate Negative (Negative) 05/03/25 00:08 Urine Bilirubin 2+ (Negative) H 05/03/25 00:08 Urine Urobilinogen 1.0 mg/dL (Negative) 05/03/25 00:08 Ur Leukocyte Esterase Negative (Negative) 05/03/25 00:08 Urine RBC 3-5 /hpf (0-2) 05/03/25 00:08 Urine WBC 0-5 /hpf (0-5) 05/03/25 00:08 Ur Squamous Epith Cells 0-5 /hpf (0-5) 05/03/25 00:08 Amorphous Sediment Not Reportable 05/03/25 00:08 Urine Bacteria None seen /hpf (NONE) 05/03/25 00:08 Hyaline Casts 1.21 /lpf 05/03/25 00:08 Discharge Plan Discharge Patient Disposition: Xfer Short-Term Hosp Clinical Impression: Elevated liver enzymes, Nausea & vomiting Condition: Stable Print Language: [place] Coding Level of Care Code ED Char Con[employer]or T[employer] C[employer] for Chg Fwd Documented by User: Saran Acevedo MD 05/03/25 04:50 HPI - Abdominal Pain General: Chief Complaint: Abdominal Pain Stated Complaint: weakness, white, foamy looking bowel movements Time Seen by Provider: 05/02/25 20:54 Related Data Home Medications ?Medication ?Instructions ?Recorded ?Confirmed naproxen sodium 220 mg tablet 220 - 440 mg PO BID PRN Pain 05/03/25 05/03/25 (Aleve) omeprazole magnesium 20 mg 20 mg PO DAILY 05/03/25 05/03/25 tablet,delayed release (Prilosec OTC) Allergies Allergy/AdvReac Type Severity Reaction Status Date / Time buspirone (From BuSpar) Allergy ADR-Agitate Verified 02/04/24 15:19 d morphine Allergy Unknown Verified 02/04/24 15:19 Penicillins Allergy ALGY-Hives Verified 02/04/24 15:19 [facility] ED PFSH: Medical History (Updated 05/03/25 @ 04:46 by Saran Acevedo MD) Methamphetamine use disorder, severe Hepatitis C Generalized anxiety disorder Alcohol use disorder Major depressive disorder, recurrent, moderate Surgical History History of shoulder surgery Family History Denies family history of Suicide Social History Smoking and tobacco/nicotine status: never used tobacco/nicotine Alcohol intake: current Substance/Drug Use: current Course Vital Signs: Vital signs: Vital Signs Temperature 98.3 F 05/02/25 20:27 Pulse Rate 88 05/03/25 17:08 Respiratory Rate 18 05/03/25 09:34 Blood Pressure 171/87 05/03/25 17:08 Pulse Oximetry 97 05/03/25 17:08 Oxygen Delivery Me thod Room Air 05/03/25 00:41 MDM - Abdominal Pain Medical Decision Making 49-year-old male patient presents to the emergency department with nausea vomiting abdominal pain and white frothy stool. Patient states the symptoms have been going on for the last 2 to 3 days. Patient denies any fever. Patient denies any chest pain or shortness of breath. Patient denies any other complaints. Pt has elevated bili, AST and ALT as well as ct findings c/w cholecystitis Spoke to Surgeon here who recommends transfer. at shift change care was transferred to [place], Dr. Acevedo, and I obtained ultrasound of the gallbladder which was less indicative of acute cholecystitis. I again spoke with local surgeon Dr. Johnson who agrees that the patient is nonsurgical but would benefit from hospitalization at facility which has GI consult capabilities. I spoke with Dr. Youssef at [facility] who graciously accepts the patient in transfer to a medical telemetry bed so the patient can obtain GI consultation. Lab Data 05/02/25 21:54 05/02/25 21:54 Labs/Radiology: Radiology Impressions Abdomen/Pelvis CT 05/02/25 22:56 IMPRESSION: Findings could be consistent with acute cholecystitis. Gallbladder Ultrasound 05/03/25 01:08 IMPRESSION: Gallbladder is relatively unremarkable sonographically, however the CT findings are more specific and were highly suggestive of cholecystitis. If high clinical suspicion persists, HIDA scan would provide definitive characterization. Laboratory Results WBC 6.48 10^3/uL (3.29-11.43) 05/02/25 21:54 RBC 4.22 10^6/uL (3.85-5.65) 05/02/25 21:54 Hgb 14.90 g/dL (11.27-16.99) 05/02/25 21:54 Hct 44.0 % (37-53) 05/02/25 21:54 MCV 104.3 fl (82-101) H 05/02/25 21:54 MCH 35.3 pg (27-33) H 05/02/25 21:54 MCHC 33.9 g/dL (30-55) 05/02/25 21:54 RDW 13.4 % (12.1-15.1) 05/02/25 21:54 Plt Count 169 10^3/cmm (157-399) 05/02/25 21:54 MPV 10.8 fL (7.4-10.4) H 05/02/25 21:54 Neut % (Auto) 65.4 % 05/02/25 21:54 Lymph % (Auto) 19.6 % 05/02/25 21:54 [place] % (Auto) 13.3 % 05/02/25 21:54 Eos % (Auto) 0.5 % 05/02/25 21:54 Baso % (Auto) 0.9 % 05/02/25 21:54 Neut # (Auto) 4.24 10^3/uL (1.8-7.7) 05/02/25 21:54 Lymph # (Auto) 1.3 10^3/uL (0.8-4.8) 05/02/25 21:54 [place] # (Auto) 0.9 10^3/uL (0.2-0.9) 05/02/25 21:54 Eos # (Auto) 0.0 10^3/uL (0.0-0.8) 05/02/25 21:54 Baso # (Auto) 0.1 10^3/uL (0.0-0.1) 05/02/25 21:54 Nucleated RBC % (auto) 0 % 05/02/25 21:54 Nucleated RBCs # 0.0 /100WBC 05/02/25 21:54 PT 15.00 SECONDS (12.1-14.9) H 05/02/25 21:54 INR 1.10 (0.8-1.2) 05/02/25 21:54 APTT 32.1 SECONDS (23.9-36.7) 05/02/25 21:54 Sodium 138 mmol/L (136-145) 05/02/25 21:54 Potassium 3.5 mmol/L (3.5-5.1) 05/02/25 21:54 Chloride 100 mmol/L (98-107) 05/02/25 21:54 Carbon Dioxide 26 mmol/L (22-29) 05/02/25 21:54 Anion Gap 15.5 (5-19) 05/02/25 21:54 BUN 5 mg/dL (6-20) L 05/02/25 21:54 Creatinine 0.5 mg/dL (0.7-1.2) L 05/02/25 21:54 GFR Calculation 175.3 mL/min (90-130) H 05/02/25 21:54 Glucose 194 mg/dL (65-115) H 05/02/25 21:54 Calculated Osmolality 289 mOsm/kg (285-295) 05/02/25 21:54 Calcium 8.0 mg/dL (8.5-10.5) L 05/02/25 21:54 Total Bilirubin 2.7 mg/dL (0.15-1.2) H 05/02/25 21:54 AST 258 U/L (0-40) H 05/02/25 21:54 ALT 112 U/L (0-41) H 05/02/25 21:54 Alkaline Phosphatase 239 U/L (40-130) H 05/02/25 21:54 Creatine Kinase 149 U/L (39-308) 05/02/25 21:54 Total Protein 7.6 g/dL (6.6-8.7) 05/02/25 21:54 Albumin 3.1 g/dL (3.5-5.2) L 05/02/25 21:54 Globulin 4.5 g/dL (1.3-4.6) 05/02/25 21:54 Lipase 66 U/L (13-60) H 05/02/25 21:54 Urine Color Dark yellow (Yellow) A 05/03/25 00:08 Urine Appearance Clear (CLEAR) 05/03/25 00:08 Urine pH 6.0 (5-7) 05/03/25 00:08 Ur Specific [place] 1.025 (1.005-1.030) 05/03/25 00:08 Urine Protein 1+ (Negative) A 05/03/25 00:08 Urine Glucose (UA) 2+ (Normal) H 05/03/25 00:08 Urine Ketones Trace (Negative) 05/03/25 00:08 Urine Blood Negative (Negative) 05/03/25 00:08 Urine Nitrate Negative (Negative) 05/03/25 00:08 Urine Bilirubin 2+ (Negative) H 05/03/25 00:08 Urine Urobilinogen 1.0 mg/dL (Negative) 05/03/25 00:08 Ur Leukocyte Esterase Negative (Negative) 05/03/25 00:08 Urine RBC 3-5 /hpf (0-2) 05/03/25 00:08 Urine WBC 0-5 /hpf (0-5) 05/03/25 00:08 Ur Squamous Epith Cells 0-5 /hpf (0-5) 05/03/25 00:08 Amorphous Sediment Not Reportable 05/03/25 00:08 Urine Bacteria None seen /hpf (NONE) 05/03/25 00:08 Hyaline Casts 1.21 /lpf 05/03/25 00:08 All radiology interpretation(s) finalized by discharge Discharge Plan Discharge Patient Disposition: Xfer Short-Term Hosp Clinical Impression: Elevated liver enzymes, Nausea & vomiting Condition: Stable Print Language: [place] Coding Level of Care Code ED Char Con[employer] T[employer] for Brendan Navarro
[2025-05-03] MEDS: metroNIDAZOLE IV 500 MG/100 ML PREMIX 100 MG IV (01:22)
[2025-05-03 01:52] LABS: INR 1.10 (0.8-1.2); Prothrombin Time 15.00 SECONDS (12.1-14.9)
[2025-05-03 01:53] LABS: Partial Thromboplastin Time 32.1 SECONDS (23.9-36.7)
--- NOTE | 2025-05-03 07:17 | PC.NURSE ---
accepted at [facility], hospitalist med tele per night worker nurse
--- NOTE | 2025-05-03 07:43 | PC.NURSE ---
updated pt on transfer status, no further questions.
--- NOTE | 2025-05-03 10:05 | PC.NURSE ---
discussed updates on transfer with patients, denies any further needs/request at this time.
--- NOTE | 2025-05-03 11:00 | PC.NURSE ---
per Denisse Mendez, in transfer dept.--pt can have regular diet until 1200 today (05/03/2025). Dr. Murphy aware and regular diet order placed; dietary aware as well.
--- NOTE | 2025-05-03 11:30 | PC.NURSE ---
pt informed of pending discharges at [facility]; pt provided with regular diet lunch tray.
--- NOTE | 2025-05-03 17:18 | PC.NURSE ---
discussed no further updates on transfer with patient, pt denies any questions/concerns regarding transfer.
--- NOTE | 2025-05-03 18:43 | PC.NURSE ---
attempted pt report @[phone], per Cindy on 7B at [facility] to call back @[phone].
--- NOTE | 2025-05-03 19:28 | PC.NURSE ---
Attempted to call report again. Pt's accepting nurse was giving report on current pt being transferred. Will call back in 15mins.
== END 2025-05-03 21:28 | disposition short-term general hospital (02) ==
PROVIDERS: Emergency Medicine; Registered Nurse; Emergency Provider Student in an Organized Health Care Education/Training Program
DX: R11.2 Nausea with vomiting, unspecified (principal); R74.01 Elevation of levels of liver transaminase levels
CPT/HCPCS: 36415; 74177; 76705; 80053; 81001; 82550; 83690; 85025; 85610; 85730; 99284; J0744; J3490; J7030; J9999